=== PATIENT | male | born 1960 | race African-American/Black ===

== ENCOUNTER 2023-05-15 03:01 | Emergency (ER) | payer MEDICAID ==
[~2023-05-15] VITALS: Ht 177.8 cm; Wt 200.0 kg
[2023-05-15 03:08] VITALS: TEMP 98.6
[2023-05-15 03:41] VITALS: BP 145/93; PULSE 79; RESP 16
[2023-05-15] MEDS ORDERED: VALA500T PO (03:42)
== END 2023-05-15 04:11 | disposition home or self-care (01) ==
LOC: EMS 03:02
DX: B00.9 Herpesviral infection, unspecified (principal)
CPT/HCPCS: 99283; Z7502

== ENCOUNTER 2023-06-18 09:40 | Emergency (ER) | payer MEDICAID ==
[~2023-06-18] VITALS: Ht 180.3 cm; Wt 90.9 kg
[~2023-06-18 09:40] MED LIST: VALA500T PO
[2023-06-18 09:43] VITALS: TEMP 98.6
[2023-06-18 09:57] LABS: COVID AG,FIA SOURCE NASAL SWAB
[2023-06-18 10:44] LABS: SARS-COV2 (COVID) ANTIGEN,FIA Negative (Negative)
[2023-06-18] MEDS ORDERED: PredniSONE 20 MG TABLET PO ONE (11:45)
[2023-06-18] MEDS ORDERED: KETOROLAC TROMETHAMINE 60 MG/2 ML VIAL IM ONE (11:45)
[2023-06-18] MEDS ORDERED: AMOXICILLIN TRIHYDRATE 250 MG CAPSULE PO ONE (11:45)
[2023-06-18 11:50] LABS: INFLUENZA TYPE A NEGATIVE FOR TYPE A (NEGATIVE); INFLUENZA TYPE B NEGATIVE FOR TYPE B (NEGATIVE)
[2023-06-18] MEDS ORDERED: IBUP-1492 PO (12:57)
[2023-06-18] MEDS ORDERED: PRED-554 PO (12:57)
[2023-06-18] MEDS ORDERED: AMOX500C2 PO (12:57)
[2023-06-18 13:03] VITALS: BP 139/78; PULSE 70; RESP 18
== END 2023-06-18 13:06 | disposition home or self-care (01) ==
LOC: EMS 09:46
DX: J32.9 Chronic sinusitis, unspecified (principal); Z20.822 Contact with and (suspected) exposure to COVID-19
CPT/HCPCS: 99284; 71045; 87426; 87804; 96372; J1885; J7512

== ENCOUNTER 2023-07-07 14:38 | Emergency (ER) | payer MEDICAID ==
[~2023-07-07] VITALS: Ht 180.3 cm; Wt 90.9 kg
[~2023-07-07 14:38] MED LIST changes: +AMOX500C2 PO; +IBUP-1492 PO; +PRED-554 PO
[2023-07-07 14:44] VITALS: BP 134/89; PULSE 86; RESP 16; TEMP 97.9
[2023-07-07] MEDS ORDERED: LORA10TA7 PO (15:01)
== END 2023-07-07 16:37 | disposition home or self-care (01) ==
LOC: EMS 14:38
DX: J30.9 Allergic rhinitis, unspecified (principal); R04.0 Epistaxis
CPT/HCPCS: 99282; Z7502

== ENCOUNTER 2024-07-27 12:22 | Emergency (ER) | payer MEDICAID, MEDICARE ==
[~2024-07-27] VITALS: Ht 180.3 cm; Wt 95.5 kg
[~2024-07-27 12:22] MED LIST changes: -AMOX500C2 PO; -IBUP-1492 PO; +LORA10TA7 PO; -PRED-554 PO; -VALA500T PO
[2024-07-27 12:34] VITALS: BP 137/84; PULSE 76; RESP 18; TEMP 98; O2SAT 99
[2024-07-27] MEDS: LIDOCAINE 1% 10 ML VIAL SQ ONE (13:39)
[2024-07-27] MEDS: PERTUSS(ACELL),DIPH,TET/PF 0.5 ML SYRINGE [ADULT] IM. ONE (14:05)
[2024-07-27] MEDS ORDERED: IBUP-1492 PO (15:06)
[2024-07-27] MEDS ORDERED: CEPH-558 PO (15:06)
== END 2024-07-27 15:11 | disposition home or self-care (01) ==
LOC: EMS 12:23
DX: S61.012A Laceration without foreign body of left thumb without damage to nail, initial encounter (principal); W26.0XXA Contact with knife, initial encounter; Y93.89 Activity, other specified; Y92.89 Other specified places as the place of occurrence of the external cause; Y99.8 Other external cause status
CPT/HCPCS: 99283; 90715; 90471; 12001; J3490